=== PATIENT | male | born 1950 | race Caucasian/White ===

== ENCOUNTER 2020-09-25 16:08 | Outpatient (CLI) | payer MEDICARE, OTHER, SELFPAY ==
--- NOTE | 2020-09-25 16:39 | MR_ITS ---
WS: [id number] MRI LUMBAR SPINE NONCONTRAST TECHNIQUE: Sagittal T1, T2 and STIR imaging. Axial T1 and T2 imaging. CLINICAL INFORMATION: RIGHT HIP PAIN COMPARISON: None. FINDINGS: Mild lumbar curve. No acute compression. No high-grade central canal stenosis. Disc bulging worse at L2-3 and L5-S1. L1-L2: Normal. L2-L3: Mild disc bulging with slight effacement of ventral thecal sac. Spinal canal and foramen are p atent. L3-L4: No significant disc bulging. Mild facet arthropathy. Spinal canal and foramen are patent. L4-L5: Mild disc osteophytic ridging. Mild right and no significant left foraminal narrowing. Mild fa cet arthropathy. Spinal canal is patent. L5-S1: Disc osteophyte complex with endplate ridging. Loss of disc space height. Mild facet arthropat hy. Mild to moderate bilateral foraminal narrowing. Visualized pelvic bony structures: Normal. Paravertebral soft tissues: Normal. MR/MR lumbar spine wo con* [id number] IMPRESSION: 1. Mild lumbar curve. No acute compression. No central canal stenosis. 2. Right eccentric disc bulging L4-5 with osteophytic ridging slightly contact s the exiting right L4 nerve root. Mild right foraminal narrowing. Recommend co rrelation for right L4 nerve root symptoms. 3. Mild to moderate bilateral L5-S1 foraminal narrowing due to disc osteophyti c ridging. Contact of the exiting L5 nerve roots bilaterally with mild bilatera l foraminal narrowing. 4. Mild facet arthropathy L3-L4 and L4-L5.
--- NOTE | 2020-09-25 16:39 | MR_ITS ---
WS: [id number] MRI RIGHT HIP NONCONTRAST TECHNIQUE: Axial T1, axial T2 fat sat, coronal T1, coronal STIR, sagittal T2 fat sat, sagittal T1, an d sagittal T2 fat sat, of both hips. CLINICAL INFORMATION: RIGHT HIP PAIN FINDINGS: Normal anatomic alignment. No acute fractures. Advanced degenerative arthritis right hip. Bone marrow edema involving the articular surface right femoral head and adjacent acetabulum with sub chondral cystic change. Near [id number] articulation. Associated advanced chondromalacia. Right pro ximal femoral shaft and femoral neck are normal. No acute fractures. Small right joint effusion. Smal l amount of fluid in the iliopsoas bursa. Normal pubic rami. No inguinal lymphadenopathy. Distal sacrum and coccyx are normal in appearance. Moderate degenerative arthritis left hip joint space narrowing. No bone marrow edema. MR/MR hip RT wo con* [id number] IMPRESSION: 1. Advanced osteoarthritis right hip with near complete loss of the joint spac e and subchondral edema. Edema within the femoral head and adjacent acetabulum with subchondral cystic change. 2. Small right joint effusion. 3. Moderate degenerative arthritis left hip joint space narrowing. Normal bone marrow signal.
== END 2020-09-25 16:09 | disposition home or self-care (01) ==
PROVIDERS: PCP Family Medicine; Visit Provider Family Medicine
DX: M47.816 Spondylosis without myelopathy or radiculopathy, lumbar region (principal); M25.78 Osteophyte, vertebrae; R60.0 Localized edema; M25.451 Effusion, right hip; M16.0 Bilateral primary osteoarthritis of hip
CPT/HCPCS: 72148; 73721

== ENCOUNTER 2022-09-05 07:49 | Outpatient (CLI) | payer MEDICARE, OTHER, SELFPAY ==
--- NOTE | 2022-09-05 08:00 | USCV_ITS ---
Zeeshan Anaya Age: 72 Gender: M : 1950 Exam Date: 09/05/2022 08:19 Ordering Phys: Jocelyn Donald MD Technologist: AMY [place]am Location[place] [facility] [place]: AAA Screen HISTORY: Diameter (cm) AP x Transverse x Length Velocity (cm/s) Waveform Prox Aorta: 2.37 x 2.80 x 70.20 Triphasic Mid Aorta: 2.04 x 1.74 x 74.40 Triphasic Distal Aorta: 1.60 x 1.97 x 103.50 Triphasic Right Iliac Prox: 1.36 x 1.28 x 127.20 Triphasic Left Iliac Prox: 1.30 x 1.25 x 115.50 Triphasic Stent Prox Landing x x Aneurysmal Sac Max x x Lt Lat Sac Dim Rt Lat Sac Dim Stent Dist Landing x x Right Iliac Stent x x Left Iliac Stent x x Right Renal Art Left Renal Art FINDINGS: Comparison: none available. Atherosclerotic plaque is noted in the abdominal aorta, mild. No evidence of dissection involving the abdominal aorta is detected. No evidence of abdominal aortic aneurysm. CONCLUSIONS Atherosclerotic plaque is noted in the abdominal aorta. No AAA. Dr. Suzy Lau DO (Electronically Signed) Final Date: 05 September 2022 08:48 S
== END 2022-09-05 07:50 | disposition home or self-care (01) ==
LOC: RAD 07:52
PROVIDERS: PCP Family Medicine; Visit Provider Family Medicine
DX: Z13.6 Encounter for screening for cardiovascular disorders (principal); I70.0 Atherosclerosis of aorta
CPT/HCPCS: 76706